=== PATIENT | female | born 1965 | race Caucasian/White ===

== ENCOUNTER 2018-11-29 12:16 | Emergency (ER) | payer BC ==
[~2018-11-29] VITALS: Ht 152.4 cm; Wt 111.4 kg
[~2018-11-29 12:16] MED LIST: ALBUTEROL0.09 MG/A1 IH; CARAFATE S1 GM/10 ML PO; FISH OIL CONC1000 MG PO; FLAGYL500 MG PO; FLUOXETINE; MULTIPLE VITAMI1 TA1 PO; PHENERGAN W/CO120 ML PO; PROTONIX 40MG T40 MG PO; ZITHROMAX500 MG PO; ZYRTEC5 MG PO; [UNRECOGNIZED DRUG - OTHER]; advair
[2018-11-29] MEDS ORDERED: KLONOPIN 0.5MG0.5 MG PO (12:55)
[2018-11-29] MEDS ORDERED: MEVACOR 20M20 MG/TAB PO (12:55)
[2018-11-29] MEDS ORDERED: GLUCOPHAGE XR500 M1 PO (12:56)
[2018-11-29] MEDS ORDERED: SINGULAIR 110 MG/TAB PO (12:56)
[2018-11-29] MEDS ORDERED: DOXYCYCLINE 10100 MG PO (14:09)
[2018-11-29 14:22] VITALS: BP 121/78; PULSE 90
== END 2018-11-29 14:25 | disposition home or self-care (01) ==
LOC: COL.ER 12:16
DX: S81.812A Laceration without foreign body, left lower leg, initial encounter (principal); E78.5 Hyperlipidemia, unspecified; Z98.890 Other specified postprocedural states; Z88.1 Allergy status to other antibiotic agents; W26.8XXA Contact with other sharp object(s), not elsewhere classified, initial encounter; Y92.009 Unspecified place in unspecified non-institutional (private) residence as the place of occurrence of the external cause

== ENCOUNTER 2018-12-01 17:38 | Emergency (ER) | payer BC ==
[~2018-12-01] VITALS: Ht 152.4 cm; Wt 111.4 kg
[~2018-12-01 17:38] MED LIST changes: +DOXYCYCLINE 10100 MG PO; +GLUCOPHAGE XR500 M1 PO; +KLONOPIN 0.5MG0.5 MG PO; +MEVACOR 20M20 MG/TAB PO; +SINGULAIR 110 MG/TAB PO
[2018-12-01 17:47] VITALS: BP 130/81; PULSE 100; TEMP 97.2
[2018-12-01] MEDS ORDERED: ZYRTEC 10MG10 MG PO (18:05)
[2018-12-01] MEDS ORDERED: RT ADVAIR 128 DISKUS IH (18:05)
[2018-12-01] MEDS ORDERED: PROZAC40 MG PO (18:07)
[2018-12-01] MEDS ORDERED: MEVACOR10 MG PO (18:07)
[2018-12-01] MEDS ORDERED: FEOSOL45 MG PO (18:10)
[2018-12-01] MEDS ORDERED: CLEOCIN HCL300 MG PO (18:39)
== END 2018-12-01 19:19 | disposition home or self-care (01) ==
LOC: COL.ER 17:38
DX: L03.116 Cellulitis of left lower limb (principal); F32.9 Major depressive disorder, single episode, unspecified; J45.909 Unspecified asthma, uncomplicated; Z88.1 Allergy status to other antibiotic agents; Z79.51 Long term (current) use of inhaled steroids

== ENCOUNTER 2018-12-12 13:36 | Emergency (ER) | payer BC ==
[~2018-12-12 13:36] MED LIST changes: +CLEOCIN HCL300 MG PO; +FEOSOL45 MG PO; +MEVACOR10 MG PO; +PROZAC40 MG PO; +RT ADVAIR 128 DISKUS IH; +ZYRTEC 10MG10 MG PO
[2018-12-12 13:50] VITALS: BP 140/71; PULSE 88; TEMP 97.5
== END 2018-12-12 14:19 | disposition home or self-care (01) ==
LOC: COL.ER 13:36
DX: S81.812D Laceration without foreign body, left lower leg, subsequent encounter (principal); Z79.84 Long term (current) use of oral hypoglycemic drugs

== ENCOUNTER → 2019-11-30 | Outpatient (CLI) | payer BC | LOC: MC.RAD 09:24 | DX: Z12.31 Encounter for screening mammogram for malignant neoplasm of breast (principal) ==

== ENCOUNTER 2020-07-05 17:50 | Emergency (ER) | payer BC ==
[~2020-07-05] VITALS: Ht 152.4 cm; Wt 113.6 kg
[2020-07-05 17:58] VITALS: TEMP 97.3
[2020-07-05 18:27] LABS: BASO % 0.5 % (0.0-2.0); EOS # 0.3 (0.0-0.7); EOS % 3.5 % (0-4.0); GRAN # 4.5 (1.4-6.5); GRAN % 55.8 % (42.2-75.2); HEMOGLOBIN 11.3 g/dl (12.5-16.0); LYMPH # 2.5 (1.2-3.4); LYMPH % 31.4 % (20.0-51.0); MEAN CELL VOLUME 85 fl (80.0-100.0); MEAN CORPUSCULAR HEMOGLOBIN 28 pg (27.0-31.0); MEAN CORPUSCULAR HGB CONC 33 g/dl (33.0-37.0); MEAN PLATELET VOLUME 9.5 fl (7.4-10.4); MONO # 0.7 (0.1-0.6); MONO % 8.4 % (1.7-9.3); PLATELET COUNT 303 K/mm3 (130-400); RED BLOOD COUNT 4.04 M/mm3 (4.10-5.30); REDCELL DISTRIBUTION WIDTH-CV 13.7 % (11.5-14.5)
[2020-07-05 18:30] LABS: HEMATOCRIT 34.5 % (37.0-47.0)
[2020-07-05 18:40] LABS: ALANINE AMINOTRANSFERASE 79 U/L (4-34); ALBUMIN 4.6 gm/dL (3.5-5.0); ALKALINE PHOSPHATASE 100 U/L (50-136); ANION GAP 10 mmol/L (7-16); AST,SGOT 55 U/L (15-37); BILIRUBIN,TOTAL 0.4 mg/dL (0.0-1.0); BLOOD UREA NITROGEN 11 mg/dL (7-17); C-REACTIVE PROTEIN 3.1 mg/dL (0.0-0.9); CALCIUM 9.2 mg/dL (8.4-10.2); CARBON DIOXIDE 28 mmol/L (22-30); CHLORIDE 101 mmol/L (98-107); CREATININE, serum 0.72 (0.52-1.25); GLUCOSE 93 mg/dL (74-106); POTASSIUM 3.9 mmol/L (3.4-5.0); SODIUM 139 mmol/L (137-145)
[2020-07-05] MEDS ORDERED: FLOVENT 110MCG7.9 GM IH (18:40)
[2020-07-05] MEDS ORDERED: PROAIR HFA0.09 MG/AC IH (18:41)
[2020-07-05] MEDS ORDERED: RT ALBUTER2.5 MG/0.5 IH (18:41)
[2020-07-05 18:49] LABS: TROPONIN-I < 0.012 ng/mL (0.000-0.035)
[2020-07-05 19:00] VITALS: BP 124/54
[2020-07-05] MEDS ORDERED: PREDNISONE20 MG PO (19:17)
[2020-07-05 19:44] VITALS: PULSE 94
== END 2020-07-05 19:57 | disposition home or self-care (01) ==
LOC: COL.ER 17:50
PROVIDERS: Emergency Medicine
DX: J45.901 Unspecified asthma with (acute) exacerbation (principal); E11.9 Type 2 diabetes mellitus without complications; Z79.52 Long term (current) use of systemic steroids; Z79.84 Long term (current) use of oral hypoglycemic drugs
CPT/HCPCS: J7512

== ENCOUNTER → 2022-05-31 | Outpatient (CLI) | payer BC ==
[~2022-05-31] MED LIST changes: +FLOVENT 110MCG7.9 GM IH; +PREDNISONE20 MG PO; +PROAIR HFA0.09 MG/AC IH; +RT ALBUTER2.5 MG/0.5 IH
== END ==
LOC: MC.RAD 13:56
DX: Z12.31 Encounter for screening mammogram for malignant neoplasm of breast (principal)

== ENCOUNTER → 2024-06-21 | Outpatient (CLI) | payer BC | LOC: MC.RAD 12:55 | DX: Z12.31 Encounter for screening mammogram for malignant neoplasm of breast (principal) ==